=== PATIENT | female | born 1965 | race Two or more races ===

== ENCOUNTER 2021-04-23 01:33 | Emergency (ER) | payer SELFPAY ==
[~2021-04-23] VITALS: Ht 170.2 cm; Wt 63.5 kg
--- NOTE | 2021-04-23 02:10 | NUR ---
pt bibs c/o rashes on her forhead, denies itches. pt placed on monitor,vss.
[2021-04-23] MEDS ORDERED: diphenhydrAMINE HCL 50 MG/ML VIAL IV ONE (02:30)
[2021-04-23] MEDS ORDERED: methylPREDNISolone SOD SUCC 125 MG/2ML VIAL IV ONE (02:30)
[2021-04-23] MEDS ORDERED: FAMOTIDINE/PF INJ 20 MG/2 ML VIAL IV ONE ×2 (02:30→02:43)
[2021-04-23] MEDS ORDERED: diphenhydrAMINE HCL 50 MG/ML VIAL ONE (02:43)
[2021-04-23] MEDS ORDERED: methylPREDNISolone SOD SUCC 125 MG/2ML VIAL ONE (02:43)
[2021-04-23] MEDS ORDERED: FAMO-131 PO (03:18)
[2021-04-23] MEDS ORDERED: CEPH500C2 PO (03:18)
[2021-04-23] MEDS ORDERED: PRED50TA PO (03:18)
[2021-04-23 03:37] VITALS: BP 140/80
--- NOTE | 2021-04-23 03:37 | NUR ---
Patient discharged to home in stable condition. Written and verbal after care instructions given. Patient verbalizes understanding of instruction.
== END 2021-04-23 03:38 | disposition home or self-care (01) ==
LOC: ER 01:34
DX: T78.40XA Allergy, unspecified, initial encounter (principal); I10 Essential (primary) hypertension; X58.XXXA Exposure to other specified factors, initial encounter
CPT/HCPCS: 96374; 96375; 99284; J1200; J2930; J3490